=== PATIENT | female | born 1945 | race Caucasian/White ===

== ENCOUNTER 2017-03-19 18:04 | Emergency (ER) | payer MEDICARE, BC ==
[~2017-03-19] VITALS: Ht 152.4 cm; Wt 60.3 kg
[~2017-03-19 18:04] MED LIST: ASPI325T PO; ATOR20TA42 PO; DARV PO; MAXZ PO; PROP10TA26 PO
[2017-03-19 18:07] VITALS: BP 182/101; PULSE 66; RESP 18; TEMP 97.9; O2SAT 96
[2017-03-19] MEDS ORDERED: ATOR20TA15 PO (18:25)
[2017-03-19] MEDS ORDERED: ROPI.5 PO (18:25)
[2017-03-19] MEDS ORDERED: PRIL20CA9 PO (18:25)
[2017-03-19] MEDS ORDERED: FLUT50SP EACH NARE (18:25)
[2017-03-19] MEDS ORDERED: CLAR10CA3 PO (18:25)
[2017-03-19] MEDS ORDERED: ASPI81TA11 PO (18:25)
[2017-03-19] MEDS ORDERED: PROP10TA6 PO (18:25)
[2017-03-19] MEDS ORDERED: CLON0.5T PO (18:25)
[2017-03-19] MEDS ORDERED: LISI-515 PO (18:26)
[2017-03-19] MEDS ORDERED: LISINOPRIL 20 MG TAB PO ONE (18:45)
--- NOTE | 2017-03-19 18:46 | PD ---
HPI Chief Complaint: Hypertension Time Seen by Provider: 18:20 Travel History International Travel<30 days: No Contact w/Intl Traveler<30days: No Traveled to known affect area: No History of Present Illness HPI This 71-year-old female presents with complaint of hypertension. In having a mild headache off and on throughout the week. she went to a freestanding clinic and the blood pressure was elevated. She was started on 20 mg of lisinopril at that time. She has not been on medications for high blood pressure previously though she has been on Adderall 20 mg 3 times daily for essential tremor. He also has a history of restless leg syndrome. She has been checking her pressure at home and has been persistently elevated. She has not responded to the lisinopril. She has noted a rash on the left anterior chest just today. It is not painful PFSH Past Medical History Cardiovascular Problems: Yes (HTN) High Cholesterol: Yes Diabetes: No Diminished Hearing: No Hypertension: Yes Neurologic: Yes (NON-ESSENTIAL TREMORS) ?: Not Past Surgical History Appendectomy: Yes Other Surgery: Yes (HEART ABLATION FOR WPW) Social History Alcohol Use: Yes (OCC) Tobacco Use: No Substance Use: No Allergies-Medications (Allergen,Severity, Reaction): Coded Allergies: No Known Allergies (Verified , 03/19/17) Reported Meds & Prescriptions Reported Meds & Active Scripts Active Reported Fluticasone Nasal [place] 50 Mcg/Act Naspr 50 Mcg EACH NARE BID 50 mcg/spray Claritin (Loratadine) 10 Mg Cap 10 Mg PO DAILY Prilosec (Omeprazole) 20 Mg Cap 20 Mg PO DAILY Clonazepam 0.5 Mg Tab 0.5 Mg PO HS Requip (Ropinirole HCl) 0.5 Mg Tab 0.5 Mg PO HS Propranolol (Propranolol HCl) 10 Mg Tab 10 Mg PO Q8HR Atorvastatin (Atorvastatin Calcium) 20 Mg Tab 20 Mg PO HS Aspirin EC (Aspirin) 81 Mg Tabdr 81 Mg PO DAILY Review of Systems General / Constitutional: No: Fever, Chills Eyes: No: Diploplia HENT: Positive: Headaches Cardiovascular: No: Chest Pain or Discomfort Respiratory: No: Cough, Shortness of Breath Gastrointestinal: No: Vomiting, Diarrhea Genitourinary: No: Urgency, Frequency Musculoskeletal: No: Myalgias Skin: Positive Rash Neurologic: No: Weakness, Dizziness Hematologic/Lymphatic: No: Easy Bruising Physical Exam Narrative GENERAL: Well-developed female SKIN: Focused skin assessment warm/dry. No rash in a dermatomal distribution on the left anterior chest. It consists of erythematous areas with vesicles very suggestive of shingles HEAD: Atraumatic. Normocephalic. EYES: Pupils equal and round. No scleral icterus. No injection or drainage. ENT: No nasal bleeding or discharge. Mucous membranes pink and moist. NECK: Trachea midline. No JVD. CARDIOVASCULAR: Regular rate and rhythm. No murmur appreciated. RESPIRATORY: No accessory muscle use. Clear to auscultation. Breath sounds equal bilaterally. GASTROINTESTINAL: Abdomen soft, non-tender, nondistended. Hepatic and splenic margins not palpable. MUSCULOSKELETAL: No obvious deformities. No clubbing. No cyanosis. No edema. NEUROLOGICAL: Awake and alert. No obvious cranial nerve deficits. Motor grossly within normal limits. Normal speech. PSYCHIATRIC: Appropriate mood and affect; insight and judgment normal. Data Data Last Documented VS Vital Signs Date Time Temp Pulse Resp B/P Pulse Ox O2 Delivery O2 Flow Rate FiO2 03/19/17 19:30 68 16 174/74 97 Room Air 03/19/17 18:07 97.9 Orders Complete Blood Count With Diff (03/19/17 18:43) Basic Metabolic Panel (Bmp) (03/19/17 18:43) Lisinopril (Prinivil) (03/19/17 18:45) Labs Laboratory Tests Test 03/19/17 19:00 White Blood Count 5.8 TH/MM3 Red Blood Count 4.47 MIL/MM3 Hemoglobin 13.1 GM/DL Hematocrit 38.7 % Mean Corpuscular Volume 86.5 FL Mean Corpuscular Hemoglobin 29.2 PG Mean Corpuscular Hemoglobin 33.8 % Concent Red Cell Distribution Width 13.7 % Platelet Count 193 TH/MM3 Mean Platelet Volume 8.5 FL Neutrophils (%) (Auto) 59.1 % Lymphocytes (%) (Auto) 32.3 % Monocytes (%) (Auto) 6.6 % Eosinophils (%) (Auto) 1.4 % Basophils (%) (Auto) 0.6 % Neutrophils # (Auto) 3.4 TH/MM3 Lymphocytes # (Auto) 1.9 TH/MM3 Monocytes # (Auto) 0.4 TH/MM3 Eosinophils # (Auto) 0.1 TH/MM3 Basophils # (Auto) 0.0 TH/MM3 CBC Comment DIFF FINAL Differential Comment Sodium Level 141 MEQ/L Potassium Level 3.7 MEQ/L Chloride Level 106 MEQ/L Carbon Dioxide Level 29.3 MEQ/L Anion Gap 6 MEQ/L Blood Urea Nitrogen 17 MG/DL Creatinine 0.66 MG/DL Estimat Glomerular Filtration 88 ML/MIN Rate Random Glucose 94 MG/DL Calcium Level 9.3 MG/DL MDM Medical Decision Making Medical Screen Exam Complete: Yes Emergency Medical Condition: Yes Medical Record Reviewed: Yes Differential Diagnosis Differential includes hypertension, renal dysfunction, electrolyte imbalance, shingles Narrative Course I do think this rash is shingles but it is not painful and I don't think would benefit from treatment. She does say she Is shingles immunization last year so perhaps this is an attenuated form. Her lab work is unremarkable. I will recommend that she take 40 mg of lisinopril daily. She has an appointment with her doctor next week Diagnosis Primary Impression: Hypertension Additional Instructions: Take 40 mg of lisinopril daily Disposition: DISCHARGE HOME Condition: Stable Nicola Miller MD Mar 19, 2017 18:45
[2017-03-19 19:03] LABS: AUTOMATED NEUTROPHIL # 3.4 TH/MM3 (1.8-7.7); BASOPHIL % 0.6 % (0.0-2.0); EOSINOPHIL # 0.1 TH/MM3 (0-0.4); EOSINOPHIL % 1.4 % (0.0-4.0); HEMATOCRIT 38.7 % (35.0-46.0); LYMPH % 32.3 % (9.0-44.0); LYMPHOCYTE # 1.9 TH/MM3 (1.0-4.8); MEAN CELL VOLUME 86.5 FL (80.0-100.0); MEAN CORPUSCULAR HEMOGLOBIN 29.2 PG (27.0-34.0); MEAN CORPUSCULAR HGB CONC 33.8 % (32.0-36.0); MONO % 6.6 % (0.0-8.0); NEUT % 59.1 % (16.0-70.0); PLATELET COUNT 193 TH/MM3 (150-450); RED BLOOD COUNT 4.47 MIL/MM3 (4.00-5.30); RED CELL DISTRIBUTION WIDTH 13.7 % (11.6-17.2); WHITE BLOOD COUNT 5.8 TH/MM3 (4.0-11.0)
[2017-03-19 19:08] VITALS: BP 188/89; PULSE 69; RESP 18; O2SAT 97
[2017-03-19 19:13] LABS: POTASSIUM 3.7 MEQ/L (3.5-5.1)
[2017-03-19 19:16] LABS: BICARBONATE 29.3 MEQ/L (21.0-32.0)
[2017-03-19 19:30] VITALS: BP 174/74; PULSE 68; RESP 16; O2SAT 97
[2017-03-19 19:39] LABS: HEMO FLAGS DIFF FINAL
[2017-03-19 20:20] VITALS: BP 169/69
[2017-03-20] MEDS ORDERED: AMLO5 PO (15:31)
[2017-03-20] MEDS ORDERED: ACYC800T PO (15:31)
== END 2017-03-19 20:20 | disposition home or self-care (01) ==
LOC: PHED 18:04
DX: I10 Essential (primary) hypertension (principal); E78.00 Pure hypercholesterolemia, unspecified; R25.1 Tremor, unspecified
CPT/HCPCS: 80048; 85025; 99284

== ENCOUNTER 2017-03-20 04:48 | Observation (INO) | payer MEDICARE, BC ==
[~2017-03-20] VITALS: Ht 152.4 cm; Wt 60.0 kg
[2017-03-20] VITALS (9 sets, daily range): BP systolic 141–173; BP diastolic 61–94; PULSE 62–90; RESP 15–22; TEMP 95.7–98.2; O2SAT 97–99
[~2017-03-20 04:48] MED LIST changes: -ASPI325T PO; +ASPI81TA11 PO; +ATOR20TA15 PO; -ATOR20TA42 PO; +CLAR10CA3 PO; +CLON0.5T PO; -DARV PO; +FLUT50SP EACH NARE; +LISI-515 PO; -MAXZ PO; +PRIL20CA9 PO; -PROP10TA26 PO; +PROP10TA6 PO; +ROPI.5 PO
--- NOTE | 2017-03-20 06:07 | PD ---
HPI Chief Complaint: Hypertension Time Seen by Provider: 05:58 Travel History International Travel<30 days: No Contact w/Intl Traveler<30days: No Traveled to known affect area: No History of Present Illness HPI 71-year-old female presents to the emergency department by private transportation the care of her daughter for evaluation of heartburn and high blood pressure. According the patient just prior to arrival to the emergency department she was awakened from sleep with a burning sensation in her neck and throat area. Patient denies any reflux of esophageal or stomach contents. Patient states that she was just seen in the emergency department on Saturday evening for elevation of her blood pressure and episodes of feeling like she was having heartburn. Patient denies any referred jaw back shoulder arm or abdominal pain. Patient denies having chest pain. No prior history of CAD or diabetes. Patient does have dyslipidemia and recently diagnosed with hypertension. Patient was seen in urgent care on Saturday and started on lisinopril was seen yesterday on Saturday and encouraged to double her dose of lisinopril. Patient states that at this time she feels some improved. 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 Patient also notes that she has a red rash with blistering to the left shoulder which is new to her. Patient does not report any severe pain with this rash but it has worsened over the past 2 days. [facility] Past Medical History Narrative Medical Hypertension dyslipidemia tremor WPW cardiac ablation tremor appendectomy Cardiovascular Problems: Yes (HTN) High Cholesterol: Yes Diabetes: No Diminished Hearing: No Hypertension: Yes Neurologic: Yes (NON-ESSENTIAL TREMORS) Immunizations Current: Yes (SHINGLES SHOT 2 YEARS AGO) Influenza Vaccination: Yes ?: Not Past Surgical History Appendectomy: Yes Other Surgery: Yes (HEART ABLATION FOR WPW) Social History Alcohol Use: Yes (OCC) Tobacco Use: No Substance Use: No Allergies-Medications (Allergen,Severity, Reaction): Coded Allergies: No Known Allergies (Verified , 03/20/17) Reported Meds & Prescriptions Reported Meds & Active Scripts Active Reported Lisinopril 20 Mg Tab 20 Mg PO DAILY Fluticasone Nasal [place] 50 Mcg/Act Naspr 50 Mcg EACH NARE BID 50 mcg/spray Claritin (Loratadine) 10 Mg Cap 10 Mg PO DAILY Prilosec (Omeprazole) 20 Mg Cap 20 Mg PO DAILY Clonazepam 0.5 Mg Tab 0.5 Mg PO HS Requip (Ropinirole HCl) 0.5 Mg Tab 0.5 Mg PO HS Propranolol (Propranolol HCl) 10 Mg Tab 10 Mg PO Q8HR Atorvastatin (Atorvastatin Calcium) 20 Mg Tab 20 Mg PO HS Aspirin EC (Aspirin) 81 Mg Tabdr 81 Mg PO DAILY Review of Systems Except as stated in HPI: all other systems reviewed are Neg Physical Exam Narrative GENERAL: Well-developed well-nourished female in no acute distress no respiratory distress SKIN: Warm and dry. Left shoulder erythematous base papular all with a few vesicles. HEAD: Normocephalic. EYES: No scleral icterus. No injection or drainage. NECK: Supple, trachea midline. No JVD or lymphadenopathy. CARDIOVASCULAR: Regular rate and rhythm without murmurs, gallops, or rubs. RESPIRATORY: Breath sounds equal bilaterally. No accessory muscle use. GASTROINTESTINAL: Abdomen soft, non-tender, nondistended. MUSCULOSKELETAL: No cyanosis, or edema. BACK: Nontender without obvious deformity. No CVA tenderness. Data Data Last Documented VS Vital Signs Date Time Temp Pulse Resp B/P Pulse Ox O2 Delivery O2 Flow Rate FiO2 03/20/17 05:47 62 16 162/72 99 Room Air 03/20/17 04:53 98.2 Orders Electrocardiogram (03/20/17 06:07) Basic Metabolic Panel (Bmp) (03/20/17 06:07) Ckmb (Isoenzyme) Profile (03/20/17 06:07) Complete Blood Count With Diff (03/20/17 06:07) Magnesium (Mg) (03/20/17 06:07) Prothrombin Time / Inr (Pt) (03/20/17 06:07) Act Partial Throm Time (Ptt) (03/20/17 06:07) Troponin I (03/20/17 06:07) Chest, Single Ap (03/20/17 06:07) Ecg Monitoring (03/20/17 06:07) Bilateral Bp Monitoring (03/20/17 06:07) Iv Access Insert/Monitor (03/20/17 06:07) Oximetry (03/20/17 06:07) Oxygen Administration (03/20/17 06:07) Aspirin Chew (Aspirin Chew) (03/20/17 06:15) Sodium Chloride 0.9% Flush (Ns Flush) (03/20/17 06:15) Acyclovir (Zovirax) (03/20/17 06:45) Labs Laboratory Tests Test 03/20/17 06:20 White Blood Count 6.9 TH/MM3 Red Blood Count 4.61 MIL/MM3 Hemoglobin 13.3 GM/DL Hematocrit 39.3 % Mean Corpuscular Volume 85.3 FL Mean Corpuscular Hemoglobin 28.9 PG Mean Corpuscular Hemoglobin 33.9 % Concent Red Cell Distribution Width 13.4 % Platelet Count 197 TH/MM3 Mean Platelet Volume 8.8 FL Neutrophils (%) (Auto) 72.5 % Lymphocytes (%) (Auto) 17.4 % Monocytes (%) (Auto) 8.5 % Eosinophils (%) (Auto) 1.0 % Basophils (%) (Auto) 0.6 % Neutrophils # (Auto) 5.0 TH/MM3 Lymphocytes # (Auto) 1.2 TH/MM3 Monocytes # (Auto) 0.6 TH/MM3 Eosinophils # (Auto) 0.1 TH/MM3 Basophils # (Auto) 0.0 TH/MM3 CBC Comment DIFF FINAL Differential Comment Sodium Level 142 MEQ/L Potassium Level 3.5 MEQ/L Chloride Level 107 MEQ/L MDM Medical Decision Making Medical Screen Exam Complete: Yes Emergency Medical Condition: Yes Medical Record Reviewed: Yes Interpretation(s) EKG sinus bradycardia rate [address] elevation or injury pattern change noted Differential Diagnosis Chest pain, atypical chest pain, ACS, myocardial infarction, hypertension, GERD , shingles, contact dermatitis Narrative Course 71-year-old female presents with complaint of heartburn that has developed over the past few days and new onset hypertension with prior history of dyslipidemia. Patient awakened from sleep from her heartburn which has essentially dissipated at this time and is her third visit to a medical facility for this complaint. Based on patient's risk factor of family history of heart disease age of 71 dyslipidemia new-onset hypertension cardiac enzymes EKG and chest x-ray obtained with plan for admission to chest pain center per protocol patient received aspirin. Also due to vesicular rash suspicious for shingles given first dose of acyclovir. Physician Communication Physician Communication [facility] [employer] Diagnosis Primary Impression: Chest pain Qualified Code: R07.2 - Precordial pain Additional Impressions: HTN (hypertension) Qualified Code: I10 - Essential hypertension Shingles rash Qualified Code: B02.9 - Herpes zoster without complication Admitting Information Admitting Physician Requests: Observation Jyothi Montiel MD Mar 20, 2017 06:07
[2017-03-20] MEDS ORDERED: ASPIRIN 81 MG CHEW TAB PO ONE (06:15)
[2017-03-20] MEDS ORDERED: SODIUM CHLORIDE 0.9% FLUSH 10 ML FLUSH IVF PRN ×2 (06:15→07:45)
[2017-03-20 06:37] LABS: BASOPHIL % 0.6 % (0.0-2.0); EOSINOPHIL # 0.1 TH/MM3 (0-0.4); HEMATOCRIT 39.3 % (35.0-46.0); HEMO FLAGS DIFF FINAL; LYMPH % 17.4 % (9.0-44.0); LYMPHOCYTE # 1.2 TH/MM3 (1.0-4.8); MEAN CELL VOLUME 85.3 FL (80.0-100.0); MEAN CORPUSCULAR HEMOGLOBIN 28.9 PG (27.0-34.0); MEAN CORPUSCULAR HGB CONC 33.9 % (32.0-36.0); MONO % 8.5 % (0.0-8.0); NEUT % 72.5 % (16.0-70.0); PLATELET COUNT 197 TH/MM3 (150-450); RED BLOOD COUNT 4.61 MIL/MM3 (4.00-5.30); RED CELL DISTRIBUTION WIDTH 13.4 % (11.6-17.2); WHITE BLOOD COUNT 6.9 TH/MM3 (4.0-11.0)
--- NOTE | 2017-03-20 06:42 | RADHPO ---
EXAM DATE/TIME: 03/20/2017 06:12 [facility] COMPARISON: No previous studies available for comparison. INDICATIONS : Chest pain. MEDICAL HISTORY : Hypertension. SURGICAL HISTORY : None. ENCOUNTER: Initial ACUITY: 1 day PAIN SCORE: 4/10 LOCATION: Bilateral chest FINDINGS: A single view of the chest demonstrates the lungs to be symmetrically aerated without evidence of mas s, infiltrate or effusion. The heart size is enlarged.. Osseous structures are intact. CONCLUSION: 1. No acute intrathoracic disease. 2. Compensated cardiomegaly. Henrique Ellis MD on March 20, 2017 at 6:40 Board Certified Radiologist. This report was verified electronically.
[2017-03-20 06:44] LABS: CHLORIDE 107 MEQ/L (98-107); POTASSIUM 3.5 MEQ/L (3.5-5.1); SODIUM (NA) 142 MEQ/L (136-145)
[2017-03-20] MEDS ORDERED: ACYCLOVIR 800 MG TAB PO ONE (06:45)
[2017-03-20 06:47] LABS: ANION GAP 7 MEQ/L (5-15); BICARBONATE 27.8 MEQ/L (21.0-32.0); BLOOD UREA NITROGEN 21 MG/DL (7-18); MAGNESIUM 2.5 MG/DL (1.5-2.5)
[2017-03-20 06:48] LABS: INTERNATIONAL NORMALIZED RATIO 1.2 RATIO; PROTHROMBIN TIME - PATIENT 13.7 SEC (9.8-11.6)
[2017-03-20 06:50] LABS: GLOMERULAR FILTRATION RATE 88 ML/MIN (>89)
[2017-03-20 07:21] LABS: CREATINE KINASE 70 U/L (26-192)
[2017-03-20] MEDS ORDERED: ACETAMINOPHEN/HYDROcodone 325 MG/7.5 MG TAB PO PRN (08:15)
[2017-03-20] MEDS ORDERED: MORPHINE SULFATE 4 MG/ML INJ IV PRN (08:15)
[2017-03-20] MEDS ORDERED: SODIUM CHLORIDE 0.9% FLUSH 10 ML FLUSH IV FLUSH PRN (08:15)
[2017-03-20] MEDS ORDERED: ACETAMINOPHEN 500 MG CPLT PO PRN (08:15)
[2017-03-20] MEDS ORDERED: ONDANSETRON HCL 4 MG/2 ML VIAL IV PRN (08:15)
[2017-03-20] MEDS ORDERED: NITROGLYCERIN 0.4 MG SL 25 TABS/BTL SL PRN (08:15)
--- NOTE | 2017-03-20 08:57 | HHI.HP ---
[facility] Service [place] [facility] Primary Care Physician Non-Staff Admission Diagnosis chest pain Diagnoses: (1) Chest pain Diagnosis: Principal (2) Hypertension Diagnosis: Principal (3) Shingles rash Diagnosis: Principal (4) Hyperlipidemia Diagnosis: Secondary (5) Family history of heart disease Diagnosis: Secondary Chief Complaint: Chest discomfort Travel History International Travel<30 Days: No Contact w/Intl Traveler <30 Da: No Traveled to Known Affected Are: No History of Present Illness 71-year-old female with known history of hypertension, hyperlipidemia , restless leg syndrome, tremors, history of Cqjic-Ynuicgdjv-Gkpyj syndrome status post ablation who presented to hospital because of elevated blood pressure. Patient states that she has been having symptoms associated with elevated blood pressure for the last 2 weeks to include headache, left ear pain. She has gone to urgent care and was started on lisinopril 20 mg. 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 2 days ago she developed left ear and left jaw pain which she felt palpable pressure noted in the infra auricular area. She got out of bed and posterior ear with hydrogen peroxide with minimal relief. She checked blood pressures in has been running 200/110 she did go to urgent care and was started on lisinopril, she continued to take medication and monitor blood pressure. Her blood pressure was elevated again yesterday so she came to the emergency department and was notified to increase to lisinopril 40 mg daily. Patient states that she woke up this morning at 4 AM with burning sensation in her neck and throat. She got up and check blood pressure in was still 200/110 so she took lisinopril 40 mg as directed by the ER physician. However blood pressure did not improve and it was recommended by her daughter that she come to the hospital for evaluation. Patient had any nausea, vomiting, diaphoresis, shortness of breath, dyspnea, lightheadedness, dizziness. Because of the patient's atypical presentation and risk factors is recommended by the ER physician the patient be observed for chest pain evaluation. Patient was also noticed to have a erythematous/macular rash noted over her left shoulder and left anterior chest. Patient has had recent varicella vaccine. Review of Systems Constitutional: DENIES: Diaphoretic episodes, Fatigue, Fever, Weight gain, Weight loss, Chills, Dizziness, Change in appetite, Night Sweats Eyes: DENIES: Blurred vision, Diplopia, Eye inflammation, Eye pain, Vision loss , Double Vision Ears, nose, mouth, throat: DENIES: Vertigo, Nasal discharge, Throat pain, Ear Pain, Running Nose, Sinus Pain Respiratory: DENIES: Apneas, Cough, Snoring, Wheezing, Hemoptysis, Sputum production, Shortness of breath Cardiovascular: COMPLAINS OF: Chest pain, DENIES: Palpitations, Syncope, Dyspnea on Exertion, PND, Lower Extremity Edema, Orthopnea, Claudication Gastrointestinal: DENIES: Abdominal pain, Black stools, Bloody stools, Constipation, Diarrhea, Nausea, Vomiting, Difficulty Swallowing, Anorexia Neurologic: DENIES: Abnormal gait, Headache, Localized weakness, Paresthesias, Seizures, Speech Problems, Tremor, Poor Balance Past Family Social History Past Medical History Hypertension Hyperlipidemia Restless leg syndrome Mutxc-Zmrwhbmly-Iamac syndrome Gastroesophageal reflux Past Surgical History Appendectomy Cardiac ablation for Khket-Ijdastyyw-Vptqn syndrome Reported Medications Reported Meds & Active Scripts Active Reported Lisinopril 20 Mg Tab 20 Mg PO DAILY Fluticasone Nasal [place] 50 Mcg/Act Naspr 50 Mcg EACH NARE BID 50 mcg/spray Claritin (Loratadine) 10 Mg Cap 10 Mg PO DAILY Prilosec (Omeprazole) 20 Mg Cap 20 Mg PO DAILY Clonazepam 0.5 Mg Tab 0.5 Mg PO HS Requip (Ropinirole HCl) 0.5 Mg Tab 0.5 Mg PO HS Propranolol (Propranolol HCl) 10 Mg Tab 10 Mg PO Q8HR Atorvastatin (Atorvastatin Calcium) 20 Mg Tab 20 Mg PO HS Aspirin EC (Aspirin) 81 Mg Tabdr 81 Mg PO DAILY Allergies: Coded Allergies: No Known Allergies (Verified , 03/20/17) Family History Reviewed and significant for adult onset diabetes, significant coronary artery disease or father from myocardial infarction and mother had bypass surgery Social History Patient denies any tobacco, alcohol or illicit drugs Physical Exam Vital Signs Vital Signs Date Time Temp Pulse Resp B/P Pulse Ox O2 Delivery O2 Flow Rate FiO2 03/20/17 07:59 65 15 164/61 97 03/20/17 05:47 62 16 162/72 99 Room Air 03/20/17 05:06 85 22 167/80 98 Room Air 03/20/17 05:06 18 98 Room Air 03/20/17 04:53 98.2 90 18 173/94 98 Physical Exam GENERAL: Well-developed, well-nourished, in no acute distress. alert and orientated HEENT: Head is normocephalic without any lesions or masses noted. Facial features are symmetric. Eyes: Pupils equal round reactive to light. Extraocular muscles are intact. Conjunctivae were clear. Oropharyngeal: Pharynx without any erythema edema. Tongue is midline without deviation. Buccal mucosa is moist without any masses or lesions NECK: Supple without any masses. Trachea midline no deviation. No JVD, no bruits are appreciated CARDIAC: Regular rhythm, regular rate. S1/S2 are heard. No murmurs gallops or rubs. LUNGS: Clear to auscultation bilaterally. No wheeze, rhonchi or rales. No use of accessory muscles on inspiration or expiration. ABDOMEN: Soft, nontender. Nondistended. Bowel sounds heard in all 4 quadrants. No organomegaly or masses. Negative rebound, negative guarding EXTREMITIES: No edema, pulses are equal bilaterally. No cyanosis or clubbing NEUROLOGY: Mood and affect appear appropriate. Cranial nerves II through XII grossly intact. Muscle strength 5/5 in upper and lower extremities bilaterally. Deep tendon reflexes are 2+ in upper and lower extremities bilaterally. LEFT SHOULDER: Patient does have a macular rash in multiple areas located over dermatome C3/C4. No obvious vesicles, nonpainful Laboratory Laboratory Tests Test 03/20/17 06:20 White Blood Count 6.9 Red Blood Count 4.61 Hemoglobin 13.3 Hematocrit 39.3 Mean Corpuscular Volume 85.3 Mean Corpuscular Hemoglobin 28.9 Mean Corpuscular Hemoglobin 33.9 Concent Red Cell Distribution Width 13.4 Platelet Count 197 Mean Platelet Volume 8.8 Neutrophils (%) (Auto) 72.5 Lymphocytes (%) (Auto) 17.4 Monocytes (%) (Auto) 8.5 Eosinophils (%) (Auto) 1.0 Basophils (%) (Auto) 0.6 Neutrophils # (Auto) 5.0 Lymphocytes # (Auto) 1.2 Monocytes # (Auto) 0.6 Eosinophils # (Auto) 0.1 Basophils # (Auto) 0.0 CBC Comment DIFF FINAL Differential Comment Prothrombin Time 13.7 Prothromb Time International 1.2 Ratio Activated Partial 35.0 Thromboplast Time Sodium Level 142 Potassium Level 3.5 Chloride Level 107 Carbon Dioxide Level 27.8 Anion Gap 7 Blood Urea Nitrogen 21 Creatinine 0.66 Estimat Glomerular Filtration 88 Rate Random Glucose 100 Calcium Level 9.4 Magnesium Level 2.5 Total Creatine Kinase 70 Troponin I LESS THAN 0.02 Result Diagram: 03/20/1761903/20/17619 Imaging Last Impressions Chest X-Ray 03/20/17606 Signed Impressions: Service Date/Time: Monday, March 20, 2017 06:12 - CONCLUSION: 1. No acute intrathoracic disease. 2. Compensated cardiomegaly. Henrique Ellis MD Assessment and Plan Assessment and Plan 71-year-old female with known history of hypertension, hyperlipidemia , tremors, Nbofd-Wnkllrpfs-Xgylx syndrome, restless leg syndrome who presented to the hospital because of burning sensation in her upper chest and neck Chest pain, atypical Patient with increased risk factors to include age, postmenopausal, hypertension, hyperlipidemia, history of heart disease Serial cardiac enzymes were performed which remain negative to rule out any acute coronary event Serial EKGs were performed and reviewed by myself which shows sinus rhythm with anterior lateral ST changes which are nonspecific Patient underwent nuclear stress test which was negative for ischemia low risk factor Continue aspirin, nitroglycerin as needed Hypertension, accelerated Continue propranolol, lisinopril Add Norvasc 5 mg daily Hyperlipidemia Continue statin Skin rash following dermatome C3/C4, possible early varicella zoster Continue acyclovir DVT prevention Sequential compression devices Written by Jack Lau, acting as scribe for Dr. Erickson on 03/20/17 at 08: 56. This note was transcribed by scribe MIKE Rankin. I, Dr. Juan Erickson personally performed the history, physical exam, and medical decision making; and confirmed the accuracy of the information in the transcribed note. Authenticated by Dr. Juan Erickson on 03/20/17 at 16:25. Discharge disposition Discharge home in stable condition if stress test negative Activity: Ad vy. Diet: Healthy heart diet Medications per medication reconciliation Follow-up with primary medical doctor in one week Last Impressions Chest X-Ray 03/20/17606 Signed Impressions: Service Date/Time: Monday, March 20, 2017 06:12 - CONCLUSION: 1. No acute intrathoracic disease. 2. Compensated cardiomegaly. Henrique Ellis MD Myocardial Perfusion Scan Nuc Med 03/20/17 0000 Signed Impressions: Service Date/Time: Monday, March 20, 2017 13:51 - CONCLUSION: 1. No fixed or reversible defects to suggest ischemia or infarction. 2. Normal wall motion and calculated ejection fraction. RISK CATEGORY: Low (<1%% Annual Mortality Rate) Esteban Cunningham MD Problem Qualifiers (1) Chest pain: Qualified Code: R07.2 - Precordial pain (2) Hypertension: Qualified Code: I15.9 - Secondary hypertension (3) Shingles rash: Qualified Code: B02.9 - Herpes zoster without complication (4) Hyperlipidemia: Qualified Code: E78.5 - Hyperlipidemia, unspecified hyperlipidemia type Jack Lau Mar 20, 2017 08:57 [place] Erickson DO Mar 20, 2017 16:26
[2017-03-20] MEDS ORDERED: LISINOPRIL 20 MG TAB PO SCH (09:00)
[2017-03-20] MEDS ORDERED: amLODIPine BESYLATE 5 MG TAB PO SCH (09:00)
[2017-03-20] MEDS ORDERED: SODIUM CHLORIDE 0.9% FLUSH 10 ML FLUSH IV FLUSH SCH ×2 (09:00)
[2017-03-20] MEDS: PROPRANOLOL HCL 10 MG TAB PO SCH ×2 (09:00→14:00)
[2017-03-20] MEDS ORDERED: PANTOPRAZOLE SOD 40 MG DELAYED RELEASE TAB PO SCH (09:00)
[2017-03-20] MEDS: ACYCLOVIR 800 MG TAB PO SCH ×2 (10:00→14:00)
[2017-03-20 10:55] LABS: CREATINE KINASE 56 U/L (26-192)
[2017-03-20 13:08] LABS: CREATINE KINASE 52 U/L (26-192)
[2017-03-20] MEDS ORDERED: REGADENOSON INJ 0.4 MG/5 ML SYR IV ONE (13:57)
--- NOTE | 2017-03-20 15:20 | RADHPO ---
EXAM DATE/TIME: 03/20/2017 13:51 [facility] COMPARISON: No previous studies available for comparison. INDICATIONS : Substernal chest pain radiating to left jaw. Angina. DOSE: 25.4 mCi Tc99m Myoview at stress. 8.5 mCi Tc99m Myoview at rest. 0.4 mg Lexiscan STRESS SYMPTOMS: Stomach pressure and headache. EJECTION FRACTION: 62% MEDICAL HISTORY : Hypertension. Gastroesophageal reflux disease. Pguua-Lugseoogd-Fxplf syndrome SURGICAL HISTORY : Appendectomy. Cardiac ablation. ENCOUNTER: Initial ACUITY: 1 day PAIN SCALE: 3/10 LOCATION: Substernal chest TECHNIQUE: The patient underwent pharmacologic stress with infusion of prescribed dose. Continuous ECG tracing was monitored during stress. Gated SPECT imaging was performed after stress and conventional SPECT i maging was performed at rest. The examination was performed on a SPECT/CT scanner, both attenuation and non-corrected datasets were reviewed. FINDINGS: DISTRIBUTION: The maximum perfused segment at stress is in the anterior wall. PERFUSION STUDY: The pattern of perfusion at stress is within normal limits. There is a summed stress score of zero. GATED STUDY: There is intact wall motion and thickening without hypokinetic or dyskinetic segments. CONCLUSION: 1. No fixed or reversible defects to suggest ischemia or infarction. 2. Normal wall motion and calculated ejection fraction. RISK CATEGORY: Low (<1% Annual Mortality Rate) Esteban Cunningham MD on March 20, 2017 at 15:16 Board Certified Radiologist. This report was verified electronically.
[2017-03-20] MEDS ORDERED: ACYC800T PO (15:31)
[2017-03-20] MEDS ORDERED: AMLO5 PO (15:31)
--- NOTE | 2017-03-20 15:31 | HHI.DCPOC ---
Discharge Care Plan Diagnosis: (1) Chest pain (2) Shingles Goals to Promote Your Health * To prevent worsening of your condition and complications * To maintain your health at the optimal level Directions to Meet Your Goals Take your medications as prescribed Follow your dietary instruction Follow activity as directed Keep your appointments as scheduled Take your immunizations and boosters as scheduled If your symptoms worsen call your PCP, if no PCP go to Urgent Care Center or Emergency Room Smoking is Dangerous to Your Health. Avoid second hand smoke Call the 24-hour hour crisis hotline for domestic abuse at [facility] Mar 20, 2017 15:31 Richmond Erickson DO Mar 20, 2017 16:26
--- NOTE | 2017-03-20 16:55 | EKG ---
Date Performed: 03/20/2017 Time Performed: 09:01:52 PTAGE: 71 years EKG: Sinus rhythm Extensive ST-T changes are nonspecific Borderline ECG PREVIOUS TRACING : 03/20/2017 05.29 Since previous tracing, no significant change noted DOCTOR: Jb Hernadez Interpretating Date/Time 03/20/2017 16:53:48
--- NOTE | 2017-03-20 16:55 | EKG ---
Date Performed: 03/20/2017 Time Performed: 05:29:26 PTAGE: 71 years EKG: Sinus bradycardia Normal ECG except for rate PREVIOUS TRACING : 03/20/2017 05.29 Since previous tracing, no significant change noted DOCTOR: Jb Hernadez Interpretating Date/Time 03/20/2017 16:54:44
--- NOTE | 2017-03-20 16:58 | EKG ---
Date Performed: 03/20/2017 Time Performed: 12:13:00 PTAGE: 71 years EKG: Sinus rhythm . Anterolateral ST-T changes are nonspecific Borderline ECG PREVIOUS TRACING : 03/20/2017 09.01 Since previous tracing, no significant change noted DOCTOR: Jb Hernadez Interpretating Date/Time 03/20/2017 16:57:47
--- NOTE | 2017-03-20 17:01 | TR ---
Date Performed: 03/20/2017 Time Performed: 14:09:20 DOCTOR: Jb Hernadez DRUG LIST: CLINICAL HISTORY: CHEST PAIN REASON FOR TEST: Chest pain REASON FOR ENDING: OBSERVATION: CONCLUSION: Lexiscan stress test was performed under standard four minute protocol. Radionuclid e was injected one minute prior to ending the test. No electrocardiographic abormalities were present to suggest ischemia. Nuclear imaging and interpretation are pending. COMMENTS:
[2017-03-20] MEDS ORDERED: ATORVASTATIN 20 MG TAB PO SCH (21:00)
[2017-03-20] MEDS ORDERED: clonazePAM 0.5 MG TAB PO SCH (21:00)
== END 2017-03-20 17:10 | disposition home or self-care (01) ==
LOC: PHED 04:48 → PHEDA 07:42 → UNDOADMOB 07:42 → PHEDA 09:13 → PH3B 09:13 → UNDODISOB 17:10
PROVIDERS: ADMIT Hospitalist; ATTEND Hospitalist
DX: R07.2 Precordial pain (principal); I10 Essential (primary) hypertension; B02.9 Zoster without complications; E78.5 Hyperlipidemia, unspecified; I45.6 Pre-excitation syndrome; E78.00 Pure hypercholesterolemia, unspecified; Z79.899 Other long term (current) drug therapy; Z82.49 Family history of ischemic heart disease and other diseases of the circulatory system; R51 Headache; R68.84 Jaw pain; G25.81 Restless legs syndrome; K21.9 Gastro-esophageal reflux disease without esophagitis; I51.7 Cardiomegaly; R94.31 Abnormal electrocardiogram [ECG] [EKG]
CPT/HCPCS: 71010; 78452; 80048; 82550; 83735; 84484; 85025; 85610; 85730; 93005; 93017; 99285; A9502; G0378; J2785